=== PATIENT | male | born 1990 | race Caucasian/White ===

== ENCOUNTER 2020-04-16 14:48 | Emergency (ER) | payer SELFPAY ==
[2020-04-16] MEDS ORDERED: ONDANSETRON 4 MG TAB.RAPDIS PO ONE (16:40)
--- NOTE | 2020-04-16 16:40 | ER Document Report ---
ED Fever - General Chief Complaint: Vomiting/Diarrhea Stated Complaint: FEVER/VOMITING Time Seen by Provider: 04/16/20 16:01 Primary Care Provider: SHILPA ROSA MD [ACTIVE STAFF] - Follow up as needed Mode of Arrival: Ambulatory Notes: 29-year-old male past medical history significant for depression, anxiety, insomnia presents to the emergency room complaining of nausea and vomiting that started a week ago. States he got worse today with one episode of diarrhea. States he had a cough with general body aches today started with a fever of 101 no fever prior to today. States he took Motrin with minimal relief today. States he was seen at [facility] a week ago did not have any testing done again states his symptoms were improving but have gotten worse today. He denies any recent travel. No COVID-19 exposure. No bad food he can think of. Has a sister and a daughter with bronchitis no other ill contacts. No antibiotics in the past month. TRAVEL OUTSIDE OF THE [place] IN LAST 30 DAYS: No - Related Data Allergies/Adverse Reactions: citalopram [From Celexa] Allergy (Verified 04/16/20 16:12) Penicillins Allergy (Verified 04/16/20 16:12) Past Medical History - General Information source: Patient - Social History Smoking Status: Current Every Day Smoker Frequency of alcohol use: Occasional Drug Abuse: None Family History: Reviewed & Not Pertinent Psychiatric Medical History: Reports: Hx Bipolar Disorder, Hx Depression - +anxiety Review of Systems - Review of Systems Constitutional: Fever EENT: No symptoms reported Cardiovascular: No symptoms reported Respiratory: No symptoms reported Gastrointestinal: Diarrhea, Nausea, Vomiting. denies: Abdominal pain Skin: No symptoms reported Neurological/Psychological: No symptoms reported -: Yes All other systems reviewed and negative Physical Exam - Vital signs Vitals: Temp Pulse Resp BP Pulse Ox 98.0 F 80 20 136/74 H 99 04/16/20 14:53 04/16/20 14:53 04/16/20 14:53 04/16/20 14:53 04/16/20 14:53 - Notes Notes: VITAL SIGNS: Within normal limits. GENERAL: Mild acute distress, non-toxic appearance. HEAD: Normal with no signs of head trauma. EYES: PERRLA, EOMI, conjunctiva normal, no discharge. EARS: Hearing grossly intact. NOSE: Normal. THROAT: Oropharynx is normal. NECK: Normal range of motion, no tenderness, supple, no lymphadenopathy, No adenopathy, no JVD. CHEST: Clear breath sounds bilaterally. No wheezes, rales, or rhonchi. CARDIAC: Regular rate and rhythm. S1 and S2, without murmurs, gallops, or rubs. VASCULAR: No Edema. Peripheral pulses normal and equal in all extremities. ABDOMEN: Normal and soft with no tenderness, no masses or pulsatile masses. No organomegaly. Positive bowel sounds x4. No CVA tenderness noted bilaterally. GASTROINTESTINAL: Bowel sounds normal GENITOURINARY: Normal, No tenderness LYMPATHTIC: No lymphadenopathy noted. MUSCULOSKELETAL: Good range of motion of all major joints. Extremities without clubbing, cyanosis or edema. NEUROLOGICAL: Alert and oriented x 3. No focal sensory or strength deficits. Speech normal. Follows commands appropriately. PSYCHIATRIC: Normal Affect, judgement and mood. SKIN: Normal appearance with no rashes or lesions. Course - Re-evaluation Re-evalutation: 04/16/20 18:19 Patient is resting comfortably he is afebrile, he is nontoxic-appearing, he is able to tolerate p.o. fluids. Has no nausea, vomiting, or diarrhea since arrival to the emergency room. All test results were reviewed with the patient. Patient is requesting to be tested for COVID even though he has had no known exposure, but has had nausea and vomiting for over a week with diarrhea and a fever. Denies any loss of smell or taste of food he is aware that he will need to self quarantine for 14 days or until he gets a negative test result back. Was counseled on need to follow-up with a primary care physician if not improving in 2 to 3 days. On-call physician was provided for him. He was counseled on a clear liquid diet for the next 24 hours. Advance to bland diet as tolerated. Patient was given strict return to the emergency room guidelines. Return for any new or worsening symptoms. All questions were answered. Patient verbalized understanding and agrees with plan of care. 04/16/20 21:48 - Vital Signs Vital signs: Temp Pulse Resp BP Pulse Ox 98.6 F 66 20 131/74 H 100 04/16/20 18:21 04/16/20 18:21 04/16/20 18:21 04/16/20 18:21 04/16/20 18:21 - Laboratory Result Diagrams: 04/16/20 16:53 04/16/20 16:53 Laboratory results interpreted by me: 04/16/20 16:53 Anion Gap 4 L Discharge - Discharge Clinical Impression: Body aches Nausea and vomiting Qualifiers: Vomiting type: unspecified Vomiting Intractability: non-intractable Qualified Code(s): R11.2 - Nausea with vomiting, unspecified Diarrhea Qualifiers: Diarrhea type: unspecified type Qualified Code(s): R19.7 - Diarrhea, unspecified Condition: Stable Disposition: HOME, SELF-CARE Instructions: COVID-19 Guidance for Persons Under Investigation, Clear Liquid Diet ([facility]), Diarrhea, Nonspecific ([facility]), Fever ([facility]), Viral Syndrome ([facility]), Vomiting ([facility]) Additional Instructions: Clear liquid diet for the next 24 hours. Advance to bland diet as tolerated. Follow-up with a primary care physician if not improving in 2 to 3 days. You must self quarantine for the next 14 days or until you get a negative COVID 19 test results. Return to the emergency room for any new or worsening symptoms. Forms: Return to Work Referrals: SHILPA ROSA MD [ACTIVE STAFF] - Follow up as needed
[2020-04-16 17:11] LABS: APPEARANCE,URINE CLEAR; BILIRUBIN,URINE NEGATIVE (NEGATIVE); COLOR,URINE YELLOW; GLUCOSE, URINE NEGATIVE (NEGATIVE); KETONES,URINE NEGATIVE (NEGATIVE); LEUKOCYTE ESTERASE,URINE NEGATIVE (NEGATIVE); NITRITE,URINE NEGATIVE (NEGATIVE); PROTEIN,URINE NEGATIVE (NEGATIVE); UROBILINOGEN,URINE NEGATIVE mg/dL (<2.0)
[2020-04-16 17:21] LABS: ABSOLUTE BASOPHILS # (AUTO) 0.1 10^3/uL (0.0-0.2); ABSOLUTE EOSINOPHILS # (AUTO) 0.3 10^3/uL (0.0-0.6); ABSOLUTE LYMPHOCYTES (AUTO) 2.2 10^3/uL (0.5-4.7); ABSOLUTE MONOCYTES (AUTO) 0.5 10^3/uL (0.1-1.4); BASOPHILS % (AUTO) 0.7 % (0-2); EOSINOPHILS % (AUTO) 4.8 % (0-6); HEMATOCRIT 43.4 % (37.9-51.0); HEMOGLOBIN 14.8 g/dL (13.5-17.0); LYMPHOCYTES % (AUTO) 30.7 % (13-45); MEAN CORPUSCULAR HEMOGLOBIN 29.1 pg (27.0-33.4); MEAN CORPUSCULAR HGB CONC 34.1 g/dL (32.0-36.0); MEAN CORPUSCULAR VOLUME 85 fl (80-97); MONOCYTES % (AUTO) 6.7 % (3-13); PLATELET COUNT 238 10^3/uL (150-450); RED BLOOD COUNT 5.09 10^6/uL (4.35-5.55); RED CELL DISTRIBUTION WIDTH 13.8 % (11.5-14.0); SEGMENTED NEUTROPHILS % (AUTO) 57.1 % (42-78); TOTAL CELLS COUNTED % (AUTO) 100 %; WHITE BLOOD COUNT 7.1 10^3/uL (4.0-10.5)
[2020-04-16 17:32] LABS: ALBUMIN 4.5 g/dL (3.5-5.0); ALKALINE PHOSPHATASE 78 U/L (38-126); ASPARTATE AMINO TRANSFERASE 24 U/L (17-59); BILIRUBIN,TOTAL 0.4 mg/dL (0.2-1.3); BLOOD UREA NITROGEN 14 mg/dL (7-20); CALCIUM 9.5 mg/dL (8.4-10.2); CARBON DIOXIDE 28 mmol/L (22-30); CHLORIDE 106 mmol/L (98-107); GLUCOSE 95 mg/dL (75-110); POTASSIUM 4.6 mmol/L (3.6-5.0); TOTAL PROTEIN 7.3 g/dL (6.3-8.2)
[2020-04-16 17:39] LABS: A TYPE INFLUENZA AG NEGATIVE (NEGATIVE); B INFLUENZA AG NEGATIVE (NEGATIVE)
[2020-04-16 17:45] LABS: ANION GAP 4 (5-19)
[2020-04-16 18:24] VITALS: BP 131/74
== END 2020-04-16 18:26 | disposition home or self-care (01) ==
LOC: ER 14:48
DX: R52 Pain, unspecified (principal); R11.2 Nausea with vomiting, unspecified; R19.7 Diarrhea, unspecified; R05 Cough; F17.200 Nicotine dependence, unspecified, uncomplicated; R50.9 Fever, unspecified; Z20.828 Contact with and (suspected) exposure to other viral communicable diseases
CPT/HCPCS: 99283; 36415; 85025; 87635; 80053; 81001; 87804; S0119; C9803